=== PATIENT | male | born 1985 | race Caucasian/White ===

== ENCOUNTER 2020-07-14 21:10 | Emergency (ER) | payer OTHER ==
[2020-07-14 21:14] VITALS: BP 122/69; PULSE 79; TEMP 98.4; BMI 29.4
[2020-07-14] MEDS ORDERED: DIPHTH,PERTUSS(ACELL),TET 0.5 ML DISP.SYRIN IM ONE ×2 (21:44→22:28)
[2020-07-14] MEDS ORDERED: ceFAZolin SODIUM 1 GM VIAL IM ONE (22:19)
== END 2020-07-14 23:14 | disposition home or self-care (01) ==
LOC: JERFT 21:10
PROC: 0HQFXZZ Repair Right Hand Skin, External Approach (ICD-10-PCS; principal; 2020-07-14)
PROC: 3E02329 Introduction of Other Anti-infective into Muscle, Percutaneous Approach (ICD-10-PCS; 2020-07-14)
PROC: 3E0234Z Introduction of Serum, Toxoid and Vaccine into Muscle, Percutaneous Approach (ICD-10-PCS; 2020-07-14)
DX: S61.421A Laceration with foreign body of right hand, initial encounter (principal)
CPT/HCPCS: 73130-TC-RT-FY; 90715; 99285-25

== ENCOUNTER 2020-07-28 09:01 | Emergency (ER) | payer OTHER ==
[2020-07-28 09:12] VITALS: BP 126/81; PULSE 67; TEMP 98.2; BMI 30.2
== END 2020-07-28 11:27 | disposition home or self-care (01) ==
LOC: JERFT 09:01
DX: Z48.02 Encounter for removal of sutures (principal)
CPT/HCPCS: 99281-25